=== PATIENT | female | born 1985 | race Caucasian/White ===

== ENCOUNTER → 2019-03-02 | Outpatient (CLI) | payer OTHER ==
--- NOTE | 2019-03-02 11:13 | WOMENS IMAGING REPORT ---
EXAM DESCRIPTION: BILAT DIAGNOSTIC MAMMO W/CAD; U/S BREAST UNILAT LIMITED COMPLETED DATE/TIME: 03/02/2019 10:04 am; 03/02/2019 10:57 am REASON FOR STUDY: SIX MONTH FOLLOW UP; RIGHT BREAST R92.2; LEFT BREAST R92.2 Z85.3 PERSONAL HISTORY OF MALIGNANT NEOPLASM OF BREAST; R92.2 INCONCLUSIVE MAMMOGRAM COMPARISON: Mammogram dated 12/13/2017. Left breast ultrasound dated 06/06/2018. EXAM PARAMETERS: Standard craniocaudal and mediolateral oblique views of each breast recorded using digital acquisition. Additional "push-back" craniocaudal and mediolateral oblique images acquired. True lateral and spot compression MLO and CC images of the left breast acquired. Read with the assistance of CAD: .[facility] - [employer] Version 9.2 LIMITATIONS: None. FINDINGS: IMPLANTS: Bilateral subpectoral implants. RIGHT BREAST MASSES: There is a circumscribed oval mass in the inferior medial breast. This is unchanged from the prior mammogram, 12/13/2017. CALCIFICATIONS: No new or suspicious calcifications. ARCHITECTURAL DISTORTION: None. DEVELOPING DENSITY: None. ASYMMETRY: None noted. OTHER: No other significant findings. LEFT BREAST MASSES: No suspicious masses. CALCIFICATIONS: No new or suspicious calcifications. ARCHITECTURAL DISTORTION: None. DEVELOPING DENSITY: None. ASYMMETRY: None noted. OTHER: No other significant finding. BREAST ULTRASOUND: TECHNIQUE: Static and dynamic grayscale images acquired of the right and left breast in the specific areas of clinical/mammographic concern. Selected color Doppler images recorded. ELASTOGRAPHY PERFORMED: No. LIMITATIONS: None. FINDINGS: RIGHT BREAST: In the inferior medial breast there is a circumscribed solid mass measuring 5 x 14 x 20 mm. This is well-circumscribed with smooth margins and homogeneous echogenicity. This is oriented parallel to the skin. There is no distal shadowing. Also identified is a 6 x 10 mm cyst. Dense gla ndular tissue. LEFT BREAST: In the upper-outer breast there is a stable complex cystic area measuring 5 mm. This is unchanged from the prior ultrasound (06/06/2018). Norm dense al glandular tissue. ELASTOGRAPHY CHARACTERISTICS: Not applicable. OTHER: No other significant finding. IMPRESSION: 1. Circumscribed solid mass in the inferior medial right breast. This is unchanged compared to the p rior mammogram in November 2017. This has benign appearance on mammography and ultrasound and is probab ly a fibroadenoma. No worrisome characteristics. 2. Stable small complex cystic area in the upper-outer left breast, unchanged from the prior ultrasou nd in May 2018. ASSESSMENT: BIRADS 2: BENIGN FINDINGS BREAST DENSITY: d. The breasts are extremely dense, which lowers the sensitivity of mammography. BIRAD: 2 Benign findings. RECOMMENDATION: RECOMMENDED FOLLOW UP: Birads 1 or 2: The patient should resume routine screening . SPECIFIC INTERVENTION/IMAGING/CONSULTATION RECOMMENDED:No additional intervention/ imaging/consultati on needed at this time. COMMUNICATION:The imaging findings were not discussed with the patient. Her referring provider has be en notified of the findings. COMMENT: The patient has been notified of the results by letter per [place] requirements. Additional no tification policies are in place for contacting patient with suspicious or incomplete findings. Quality ID #[id number]: The [employer] recommends an annual screening mammogram for women aged 40 years or over. This facility utilizes a reminder system to ensure that all patients receive reminder letters, and/or direct phone calls for appointments. This includes reminders for routine scr eening mammograms, diagnostic mammograms, or other Breast Imaging Interventions when appropriate. Th is patient will be placed in the appropriate reminder system. TECHNICAL DOCUMENTATION: FINDING NUMBER: (1) ASSESSMENT: (1) JOB ID: [id number] [employer]- All Rights Reserved Reading location - IP/workstation name: [email or web address]
== END ==
LOC: WI 09:50
PROVIDERS: ATTEND Family Medicine
DX: N63.20 Unspecified lump in the left breast, unspecified quadrant (principal); Z98.82 Breast implant status
CPT/HCPCS: 76642; 77066